=== PATIENT | female | born 1930 | race African-American/Black ===

== ENCOUNTER 2018-02-14 22:44 | Emergency (ER) | payer MEDICARE, OTHER ==
[~2018-02-14] VITALS: Ht 165.1 cm; Wt 96.9 kg
[~2018-02-14 22:44] MED LIST: ACET-2178 PO; BIOT10TA2 PO; CHOL100046 PO; DETLA2 PO; MICAR8 PO; TRAM50TA3 PO
[2018-02-14] MEDS ORDERED: CLONIDINE 0.1MG TABLET PO STA (23:47)
[2018-02-15] MEDS ORDERED: ASPIRIN 81MG TABLET PO ONE
[2018-02-15 00:27] LABS: BASOPHILS % 0.4 % (0.0-2.0); EOSINOPHILS % 3.1 % (0.0-5.0); HEMATOCRIT. 29.5 % (36.0-48.0); HEMOGLOBIN. 9.8 g/dL (12.0-16.0); LYMPHOCYTES % 27.3 % (20.0-50.0); MEAN CORPUSCULAR HEMOGLOBIN 29.2 pg (28.0-32.0); MEAN CORPUSCULAR VOLUME 87.8 fL (81.0-99.0); MEAN PLATELET VOLUME 10.6 fl (7.4-10.4); MONOCYTES % 9.3 % (2.0-8.0); NEUTROPHILS % 59.9 % (40.0-76.0); PLATELET 221 x1000/uL (130-400); RED BLOOD CELL COUNT 3.36 mill/uL (4.2-5.4); RED CELL DISTRIBUTION WIDTH 14.4 % (11.6-14.6)
[2018-02-15 00:29] LABS: CHLORIDE 106 mEq/L (98-107)
[2018-02-15] MEDS ORDERED: ACETAMINOPHEN 325MG TABLET PO ONE (02:15)
[2018-02-15 02:38] VITALS: BP 139/70
== END 2018-02-15 05:00 | disposition home or self-care (01) ==
LOC: ER 02-15 04:51
DX: I10 Essential (primary) hypertension (principal); R07.89 Other chest pain; M19.90 Unspecified osteoarthritis, unspecified site; Z88.5 Allergy status to narcotic agent; Z88.0 Allergy status to penicillin; Z88.8 Allergy status to other drugs, medicaments and biological substances; Z90.710 Acquired absence of both cervix and uterus; Z96.659 Presence of unspecified artificial knee joint
CPT/HCPCS: 36415; 71045; 80053; 83880; 84484; 85025; 93005; 99285